=== PATIENT | male | born 1960 | race Two or more races ===

== ENCOUNTER → 2017-08-27 | Outpatient (CLI) | payer MEDICAID, OTHER ==
[~2017-08-27] VITALS: Ht 175.3 cm; Wt 103.0 kg
[~2017-08-27] MED LIST: AZIT500T4 PO; BUME1TAB12 PO; robitussin PO
[2017-08-27 12:56] VITALS: BP 118/64
== END | disposition home or self-care (01) ==
LOC: SRCNTR 11:17
PROVIDERS: ATTEND Internal Medicine Clinical Cardiac Electrophysiology
DX: Z45.02 Encounter for adjustment and management of automatic implantable cardiac defibrillator (principal); I11.0 Hypertensive heart disease with heart failure; I50.9 Heart failure, unspecified; I42.9 Cardiomyopathy, unspecified; B19.20 Unspecified viral hepatitis C without hepatic coma
CPT/HCPCS: G0463